=== PATIENT | female | born 1980 | race Two or more races ===

== ENCOUNTER 2025-08-30 13:54 | Emergency (ER) | payer OTHER ==
[~2025-08-30] VITALS: Ht 157.5 cm; Wt 63.5 kg
[2025-08-30] MEDS ORDERED: DEXAMETHASONE SODIUM PHOSPHATE 4 MG/ML VIAL IM ONE (15:45)
[2025-08-30] MEDS ORDERED: KETOROLAC TROMETHAMINE 30 MG VIAL IV ONE (15:45)
[2025-08-30] MEDS ORDERED: 0.9 % SODIUM CHLORIDE 1,000 ML IV ONE (15:45)
[2025-08-30] MEDS ORDERED: NYSTATIN 5 ML BLIST.PACK PO ONE (16:00)
[2025-08-30] MEDS ORDERED: KETOROLAC TROMETHAMINE 30 MG VIAL ONE (16:32)
[2025-08-30] MEDS ORDERED: DEXAMETHASONE SODIUM PHOSPHATE 4 MG/ML VIAL ONE (16:32)
[2025-08-30 17:21] LABS: BASO % 0.4 % (0.1-1.2); EOS # 0.17 (0.04-0.54); EOS % 3.1 % (0.7-7.0); LYMPH # 1.76 (1.18-3.74); LYMPH % 32.6 % (19.3-53.1); MEAN PLATELET VOLUME 9.70 fl (9.4-12.4); MONO # 0.73 (0.24-0.82); NEUT # 2.70 (1.56-6.13); NEUT % 50.0 % (34.0-71.1); RED CELL DISTRIBUTION WIDTH 13.0 % (11.6-14.4)
[2025-08-30 17:26] LABS: MONO % 13.5 % (4.7-12.5)
[2025-08-30 17:49] LABS: ALT/SGPT 19 U/L (12-78); AST/SGOT 14 U/L (15-37); BILIRUBIN TOTAL 0.43 mg/dL (0.3-1.2); BUN CREA RATIO 20 (7.0-25.0); CREATININE SERUM 0.54 mg/dL (0.55-1.02); GFR 123.22; GLOBULINA 4.7 G/DL (2.4-3.5); GLUCOSE FASTING 82 mg/dL (65-100); OSMOLALITY SERUM 276 MOSM/KG (275-295)
[2025-08-30 17:51] LABS: ERYTHROCYTE SEDIMENTATION RATE 27 mm/hr (0-20)
[2025-08-30 18:00] LABS: INR 0.98
[2025-08-30 18:29] LABS: COVID-19 AG NEGATIVE (NEGATIVE)
[2025-08-30] MEDS ORDERED: IBU800 MG PO (22:13)
[2025-08-30] MEDS ORDERED: MIRALAX17 GM PO (22:13)
[2025-08-30] MEDS ORDERED: NYSTATIN100000 UNI PO (22:13)
[2025-08-30] MEDS ORDERED: LACTULOSE 20 G/30 ML BLIST.PACK ONE (22:24)
[2025-08-30] MEDS ORDERED: LACTULOSE 10 G/15 ML ML PO ONE (22:30)
== END 2025-08-30 22:32 | disposition home or self-care (01) ==
LOC: ER 13:54
DX: B37.0 Candidal stomatitis (principal); K59.00 Constipation, unspecified; Z85.3 Personal history of malignant neoplasm of breast; Z20.822 Contact with and (suspected) exposure to COVID-19